=== PATIENT | female | born 1960 | race Caucasian/White ===

== ENCOUNTER 2019-04-09 15:10 | Outpatient (CLI) | payer BC, SELFPAY ==
[2019-04-09 16:17] LABS: Anion Gap 13.8 mmol/L (7-16); Blood Urea Nitrogen 5 mg/dL (7-18); Calcium 8.9 mg/dL (8.5-10.1); Carbon Dioxide 32 mmol/L (21-32); Chloride 98 mmol/L (98-108); Estimated Glomerular Filt Rate > 60; Glucose 146 mg/dL (70-99); Osmolality Calculated 288 mOsm/kg (285-295); Potassium 4.8 mmol/L (3.5-5.1); Sodium 139 mmol/L (136-145)
== END 2019-04-09 15:11 | disposition home or self-care (01) ==
LOC: CHSLAB 15:13
PROVIDERS: PCP Internal Medicine; Visit Provider Internal Medicine
DX: E87.1 Hypo-osmolality and hyponatremia (principal)
CPT/HCPCS: 36415; 80048

== ENCOUNTER 2019-04-15 08:57 | Emergency (ER) | payer BC, SELFPAY ==
[2019-04-15] VITALS (10 sets, daily range): BP systolic 106–213; BP diastolic 62–111; PULSE 98–124; RESP 16–28; TEMP 36.1–37.1; O2SAT 92–96
--- NOTE | ~2019-04-15 | XR_ITS ---
XR chest 1V portable 04/15/2019 09:48 Indication: Dyspnea. Lung cancer. Procedure: AP portable chest Comparison: Comparison to multiple prior studies sequentially, with oldest reviewed study dated 05/2017. Findings: Status post left upper lobectomy with chronic atelectasis/scarring. There is right lower lo be atelectasis/scarring. Blunting of the costophrenic recesses appears chronic. Portacatheter tip in the SVC. Lytic lesions of the scapula bilaterally with pathologic fracture at the left acromioclavicu lar joint, unchanged. Impression: 1: Chronic changes of left upper lobectomy with scarring/atelectasis. 2: Chronic right basilar atelectasis/scarring. 3: Lytic lesions of the scapula bilaterally with probable pathologic fracture of the left scapula. No significant change. Findings compatible with metastatic disease. Reviewed, dictated and finalized at location A. Impression: 1: Chronic changes of left upper lobectomy with scarring/atelectasis. 2: Chronic right basilar atelectasis/scarring. 3: Lytic lesions of the scapula bilaterally with probable pathologic fracture o f the left scapula. No significant change. Findings compatible with metastatic disease.
--- NOTE | 2019-04-15 09:23 | ECG_ITS ---
Measurements Intervals [place] Rate: 117 P: 91 DE: 151 QRS: 97 QRSD: 92 T: 71 QT: 294 QTc: 411 Interpretive Statements SINUS TACHYCARDIA RIGHT AXIS DEVIATION DELAYED PRECORDIAL R/S TRANSITION BORDERLINE T WAVE ABNORMALITY- INFERIOR LEADS BASELINE ARTIFACT- I, II, III, AVR, V1-V6 ABNORMAL ECG Electronically Signed On 04-15-2019 15:48:17 CDT by Tito Henderson D.O.
[2019-04-15 09:34] LABS: Base Excess ABG 12.6 mmol/L (0-2); HCO3 ABG 45.1 mmol/L (23-29); Oxygen Content ABG 15.5 %vol (16.0-22.0); Oxyhemoglobin 82.2 % (94-100); PO2 ABG 130.5 mmHg (80-90); Total Hemoglobin 13.2 g/dL; pH ABG 7.22 (7.35-7.45)
[2019-04-15 09:36] LABS: Device NASAL CANNULA; Modified Allen's Test Pass; Site Drawn RIGHT RADIAL
[2019-04-15 09:37] LABS: PCO2 ABG 112.4 mmHg (35-45)
[2019-04-15 09:40] LABS: Hematocrit 40.5 % (35.0-49.0); Hemoglobin 12.7 g/dL (12.0-15.0); Mean Corpuscular HGB Conc 31.4 g/dL (32.0-36.0); Mean Corpuscular Hemoglobin 33.5 pg (27.0-31.0); Mean Corpuscular Volume 106.9 fL (78.0-102.0); Mean Platelet Volume 9.8 fl (9.2-11.8); Platelet Count Result 203 K/mm3 (150-420); Red Blood Count 3.79 M/mm3 (4.20-5.40); Red Cell Distribution Width 13.8 % (11.6-14.4); White Blood Count 11.6 K/mm3 (4.8-10.8)
[2019-04-15 09:55] LABS: Alanine Aminotransferase 30 U/L (14-59); Albumin Level 3.6 g/dL (3.4-5.0); Alkaline Phosphatase 102 U/L (46-116); Aspartate Amino Transferase 21 U/L (15-37); Bilirubin,Total 0.2 mg/dL (0.00-1.00); Blood Urea Nitrogen 9 mg/dL (7-18); Calcium 9.8 mg/dL (8.5-10.1); Chloride 95 mmol/L (98-108); Estimated Glomerular Filt Rate > 60; Glucose 188 mg/dL (70-99); Osmolality Calculated 287 mOsm/kg (285-295); Potassium 4.8 mmol/L (3.5-5.1); Sodium 137 mmol/L (136-145); Total Protein 7.9 g/dL (6.4-8.2)
[2019-04-15 09:57] LABS: Lactic Acid 1.3 mmol/L (0.4-2.0); Troponin I < 0.02 ng/mL (0.00-0.056)
[2019-04-15 09:59] LABS: Magnesium 1.5 mg/dL (1.8-2.4)
[2019-04-15 10:02] LABS: Anion Gap 1.79999 mmol/L (7-16); BNP 133 pg/mL (0-100); Carbon Dioxide > 45 mmol/L (21-32)
[2019-04-15 10:17] LABS: D Dimer 0.61 mg/L (0.19-0.50)
[2019-04-15 10:18] LABS: Partial Thromboplastin Time 30.6 SEC (22.3-31.6); Prothrombin Time 10.5 Seconds (9.64-11.0)
[2019-04-15 10:55] LABS: Alveolar/Arterial O2 Gradient 103.3 mmHg; Base Excess ABG 16.2 mmol/L (0-2); Fractional Inspired Oxygen 40 %; HCO3 ABG 47.5 mmol/L (23-29); Oxygen Content ABG 13.2 %vol (16.0-22.0); Oxygen Saturation ABG 92.4 % (95-97); Oxyhemoglobin 78.8 % (94-100); PO2 ABG 59.9 mmHg (80-90); Total Hemoglobin 11.9 g/dL; pH ABG 7.27 (7.35-7.45)
[2019-04-15 10:56] LABS: Device BIPAP; Modified Allen's Test Pass; Site Drawn RIGHT RADIAL
--- NOTE | 2019-04-15 10:56 | PC.NURSE ---
1030 call to [facility] for transfer. attempting to find bed availability. jesus alberto, respiratory staff in with pt. pt breathing much better after bipap applied. report to madie washington
[2019-04-15 10:57] LABS: PCO2 ABG 106.1 mmHg (35-45)
[2019-04-15 11:12] LABS: Expiratory Pressure 6 cmH2O; Inspiratory Pressure 12 cmH2O
--- NOTE | 2019-04-15 11:13 | PC.NURSE ---
dr granados speaking with JILLIAN Pena at [facility], for Dr Iglesias. pt accepted . awaiting bed placement.
--- NOTE | 2019-04-15 11:14 | ED.SOB ---
HPI - SOB/Dyspnea General Chief Complaint: Shortness of Breath/Dyspnea Stated Complaint: ambulance Source: patient, family and EMS Limitations: clinical condition History of Present Illness HPI Narrative: 59-year-old female presents via EMS with shortness of breath and was found unresponsive and EMS administered oxygen and breathing treatment and patient did arouse more while she presented to the emergency department. Patient has a history of COPD with lung cancer metastatic with lytic lesions to the bone. After talking to family the patient is a full code, the patient was having audible wheezing with decreased breath sounds with no fever chills with no chest pain no abdominal pain no headaches no nausea vomiting. The patient has been on a pain pump for pancreatitis and EMS did find that she had pinpoint pupils admitted administered nor can. Patient has a history of metastatic lung cancer with COPD and history of DVT. MD elicited complaint: shortness of breath Pertinent past history: COPD Onset (ago): hour(s) Timing: constant Severity: severe Exacerbating factors: lying flat Relieving factors: oxygen, rest and bronchodilators Known history of: COPD Associated symptoms: denies other symptoms Treatment prior to arrival: oxygen and bronchodilator Related Data Home Medications Medication Instructions Recorded Confirmed alprazolam 0.5 mg PO BID PRN 12/17/18 04/15/19 amitriptyline 100 mg PO DAILY 12/17/18 04/15/19 blood sugar diagnostic [OneTouch 12/17/18 04/15/19 Ultra Blue Test Strip] ergocalciferol (vitamin D2) 1 unit PO DAILY 12/17/18 04/15/19 pttqggrfgku-atgtthhvw-zxdywlex 1 inh INHALATION BID 12/17/18 04/15/19 [Trelegy Ellipta] folic acid 1 mg DAILY 12/17/18 04/15/19 glimepiride 4 mg PO DAILY 12/17/18 04/15/19 ipratropium-albuterol [Combivent 2 puff INHALATION DAILY 12/17/18 04/15/19 Respimat] lancets [OneTouch Delica Lancets] 12/17/18 04/15/19 levothyroxine [Synthroid] 175 mcg PO DAILY 12/17/18 04/15/19 lidocaine HCl [Lidocaine Viscous] 1 applic MUCOUS MEMBRANE DAILY PRN 12/17/18 04/15/19 lisinopril-hydrochlorothiazide 1 tablet PO DAILY 12/17/18 04/15/19 morphine 2 mg PO DAILY 12/17/18 04/15/19 nystatin 1 unit MUCOUS MEMBRANE DAILY PRN 12/17/18 04/15/19 ondansetron HCl 8 mg PO DAILY 12/17/18 04/15/19 potassium chloride 20 meq PO DAILY 12/17/18 04/15/19 rivaroxaban [Xarelto] 2.5 mg PO DAILY 01/23/19 04/15/19 Allergies Allergy/AdvReac Type Severity Reaction Status Date / Time NSAIDS (Non-Steroidal Allergy Unknown Verified 12/12/18 17:19 Anti-Inflamma Sulfa (Sulfonamide Allergy Unknown Verified 12/12/18 17:19 Antibiotics) Review of Systems Review of Systems: All systems reviewed & are unremarkable except as noted in HPI and below PMFSH Past Medical History Medical History COPD (chronic obstructive pulmonary disease) Metastatic lung cancer (metastasis from lung to other site) Pancreatitis, chronic Family History Family History Other Diabetes mellitus Family history of arthritis Family history of lung cancer Hypertension Social History Social History Social History: smoker, now on occasion Smoking status: Never smoker Alcohol intake: never Gender identity (if verbalized by the patient): Female Exam Const: General: no acute distress and alert Orientation/consciousness: patient oriented x3 HENMT: Head: normal to inspection Eyes: Conjunctivae: conjunctivae normal Pupils: Equal, round and reactive pupils present Neck: Neck: normal visual inspection Chest: Chest palpation & inspection: normal inspection of the chest and abnormal inspection of the chest Resp: Effort & Inspection: labored and uses accessory muscles Auscultation: wheezes and diminished lung sounds Cardio: Rate: regular rate Rhythm: reg
--- NOTE | 2019-04-15 11:28 | PC.NURSE ---
report to madie washington
[2019-04-15] MEDS: methylPREDNISolone SOD SUCC 125 MG VIAL IV PUSH (11:40)
== END 2019-04-15 13:40 | disposition short-term general hospital (02) ==
PROVIDERS: Emergency Provider Emergency Medicine; PCP Internal Medicine
DX: J44.1 Chronic obstructive pulmonary disease with (acute) exacerbation (principal); R09.02 Hypoxemia; C34.90 Malignant neoplasm of unspecified part of unspecified bronchus or lung
CPT/HCPCS: 36415; 36600; 71045; 80053; 82805; 82948; 83605; 83735; 83880; 84484; 85027; 85380; 85610; 85730; 87040; 93005; 94640; 96374; 99285; J2930

== ENCOUNTER 2019-05-12 04:39 | Observation (INO) | payer BC, SELFPAY ==
[2019-05-12] VITALS (13 sets, daily range): BP systolic 124–156; BP diastolic 78–88; PULSE 91–99; RESP 16–20; TEMP 36.3–36.8; O2SAT 96–100; BMI 19.5
--- NOTE | ~2019-05-12 | XR_ITS ---
XR chest 2V DATE: 05/13/2019 10:21 INDICATION: Wheezing, dyspnea, shortness of breath TECHNIQUE: 2 views COMPARISON: 05/11/2021 view chest FINDINGS: Right Port-A-Cath catheter tip near superior cavoatrial junction. Normal heart size. Status post left partial pneumonectomy. There is discoid atelectasis or more likely discoid scarring at the right lung base. The lungs are hy perinflated consistent with COPD. No pulmonary consolidation is evident. No pleural effusion or pulmo nary vascular congestion or pneumothorax. Bilateral healed ninth rib fractures. Lytic lesion of left scapular acromial spine. IMPRESSION: Discoid atelectasis or scarring at right lung base COPD Status post left partial pneumonectomy Right Port-A-Cath Reviewed, dictated and finalized at location A.
--- NOTE | ~2019-05-12 | XR_ITS ---
XR chest 2V DATE: 05/12/2019 06:05 INDICATION: Dyspnea. History of lung cancer. TECHNIQUE: 2 views COMPARISON: 04/25/2019 portable AP chest 11/25/2018 CT pulmonary scan FINDINGS: Right Port-A-Cath catheter tip overlies the lower superior vena cava near superior cavoatri al junction. Heart size is normal. There is partial left pneumonectomy. The lungs are hyperinflated c onsistent with COPD. Mild infiltrate or atelectasis is suggested at the right lung base. Lytic lesion of left scapular acromion spine is again noted. Healed fracture of bilateral ninth ribs. Thoracolumbar scoliosis. A catheter overlies the lumbar spine. IMPRESSION: Mild infiltrate or atelectasis at right lung base COPD Status post left partial pneumonectomy for history of lung cancer Port-A-Cath catheter tip near superior cavoatrial junction Reviewed, dictated and finalized at location A.
--- NOTE | 2019-05-12 04:56 | ED.SOB ---
HPI - SOB/Dyspnea General Chief Complaint: Shortness of Breath/Dyspnea Stated Complaint: SOB Time Seen by Provider: 05/12/19 04:57 Source: patient Mode of arrival: ambulatory Limitations: no limitations History of Present Illness HPI Narrative: 59 year-old woman brought by EMS for more shortness of breath than usual which started in the last 2 hours. Patient states that having increased oxygen by nasal cannula in the ambulance seems to make her shortness of breath better. She denies chest pain, change in her cough, sputum production, cold symptoms, fever, abdominal pain, or sick exposures or travel. Her last chemotherapy was approximately 5 weeks ago. MD elicited complaint: shortness of breath Pertinent past history: COPD and other (Lung cancer s/p lobectomy) Onset (ago): hour(s) (2) Severity: moderate Exacerbating factors: nothing Relieving factors: oxygen Treatment prior to arrival: oxygen and bronchodilator (MDI) Related Data Home oxygen amount: 2 liters Home Medications Medication Instructions Recorded Confirmed alprazolam 0.5 mg PO BID PRN 12/17/18 05/12/19 blood sugar diagnostic [OneTouch 12/17/18 05/12/19 Ultra Blue Test Strip] ergocalciferol (vitamin D2) 1 unit PO DAILY 12/17/18 05/12/19 cznbzhcypvi-kwqittevf-cxmcoaut 1 inh INHALATION BID 12/17/18 05/12/19 [Trelegy Ellipta] folic acid 1 mg DAILY 12/17/18 05/12/19 glimepiride 4 mg PO DAILY 12/17/18 05/12/19 ipratropium-albuterol [Combivent 2 puff INHALATION DAILY 12/17/18 05/12/19 Respimat] lancets [OneTouch Delica Lancets] 12/17/18 05/12/19 levothyroxine [Synthroid] 175 mcg PO DAILY 12/17/18 05/12/19 lidocaine HCl [Lidocaine Viscous] 1 applic MUCOUS MEMBRANE DAILY PRN 12/17/18 05/12/19 morphine 2 mg PO DAILY 12/17/18 05/12/19 nystatin 1 unit MUCOUS MEMBRANE DAILY PRN 12/17/18 05/12/19 ondansetron HCl 8 mg PO DAILY 12/17/18 05/12/19 potassium chloride 20 meq PO DAILY 12/17/18 05/12/19 rivaroxaban [Xarelto] 2.5 mg PO DAILY 01/23/19 05/12/19 hydromorphone 8 mg PO PRN PRN 05/12/19 05/12/19 prochlorperazine maleate 10 mg PO DAILY 05/12/19 05/12/19 Allergies Allergy/AdvReac Type Severity Reaction Status Date / Time NSAIDS (Non-Steroidal Allergy Unknown Verified 12/12/18 17:19 Anti-Inflamma Sulfa (Sulfonamide Allergy Unknown Verified 12/12/18 17:19 Antibiotics) Review of Systems Constitutional: Constitutional: Denies chills, Denies fatigue, Denies fever(s) and Denies weakness Eyes: Eyes: Denies change in vision and Denies photophobia ENT: Denies dysphagia, Denies nasal congestion and Denies sore throat Cardiovascular: Cardiovascular: Denies chest pain, Denies rapid heart rate and Denies radiating jaw, neck or arm pain Respiratory: Respiratory: Reports cough (chronic), Reports dyspnea and Denies wheezing Gastrointestinal: Gastrointestinal: Denies abdominal pain, Denies diarrhea, Denies nausea and Denies vomiting Genitourinary: Genitourinary: Denies nocturia and Denies dysuria Musculoskeletal: Musculoskeletal: Denies arthralgias and Denies joint swelling Integumentary/Breasts: Skin/Breast: Denies pruritus, Denies erythema and Denies rash Neurologic: Denies vertigo, Denies dizziness and Denies syncope Psychiatric: Psychiatric: Denies anxiety and Denies depression Endocrine: Endocrine: Denies polydipsia and Denies polyuria Hematologic/Lymphatic: Hematologic/Lymphatic: Denies easy bleeding and Denies easy bruising Allergic/Immunologic: Allergic/Immunologic: Denies lip swelling and Denies wheezing [facility] Past Medical History Medical History (Updated 05/12/19 @ 06:54 by Rickey Subramanian MD) COPD (chronic obstructive pulmonary disease) Hypothyroidism Metastatic lung cancer (metastasis from lung to other site) Pancreatitis, chronic Type 2 diabetes mellitus Surgical History Surgical History (Updated 05/12/19 @ 05:13 by Rickey Subramanian MD) Hx of gastric bypass Status post lobectomy of lung Social History Social History
--- NOTE | 2019-05-12 04:58 | ECG_ITS ---
Measurements Intervals [place] Rate: 97 P: 97 [place]: 171 QRS: 97 QRSD: 90 T: 82 QT: 362 QTc: 460 Interpretive Statements SINUS RHYTHM ARM LEADS REVERSED BASELINE ARTIFACT- I, II, AVR, AVL, AVF, V1-V3 ATYPICAL ECG Electronically Signed On 05-12-2019 20:10:35 CDT by Tito Henderson D.O.
[2019-05-12 05:24] LABS: Basophils Absolute Auto 0.01 K/mm3 (0.00-0.10); Basophils Percent Auto 0.1 % (0.0-1.0); Eosinophils Absolute Auto 0.17 K/mm3 (0.02-0.50); Eosinophils Percent Auto 1.7 % (1.0-6.0); Hematocrit 40.7 % (35.0-49.0); Immature Granulocyte Absolute 0.04 K/mm3 (0.00-0.00); Immature Granulocyte Percent A 0.4 % (0.0-0.0); Lymphocytes Absolute Auto 0.94 K/mm3 (1.10-4.50); Lymphocytes Percent Auto 9.4 % (18.0-42.0); Mean Corpuscular HGB Conc 31.9 g/dL (32.0-36.0); Mean Corpuscular Hemoglobin 32.9 pg (27.0-31.0); Mean Platelet Volume 10.1 fl (9.2-11.8); Neutrophils Absolute Auto 7.6 K/mm3 (1.7-7.2); Neutrophils Percent Auto 76.4 % (50.0-70.0); Platelet Count Result 198 K/mm3 (150-420); Red Blood Count 3.95 M/mm3 (4.20-5.40); Red Cell Distribution Width 14.9 % (11.6-14.4)
[2019-05-12 05:39] LABS: Partial Thromboplastin Time 29.2 SEC (22.3-31.6); Prothrombin Time 10.4 Seconds (9.64-11.0)
[2019-05-12 05:42] LABS: BNP 23.1 pg/mL (0-100)
[2019-05-12 05:45] LABS: Alanine Aminotransferase 17 U/L (14-59); Alkaline Phosphatase 95 U/L (46-116); Aspartate Amino Transferase 15 U/L (15-37); Bilirubin,Total 0.2 mg/dL (0.00-1.00); Blood Urea Nitrogen 6 mg/dL (7-18); Calcium 9.2 mg/dL (8.5-10.1); Carbon Dioxide 36 mmol/L (21-32); Chloride 99 mmol/L (98-108); Estimated CRCL calculation 61 ml/min; Estimated Glomerular Filt Rate > 60; Glucose 94 mg/dL (70-99); Osmolality Calculated 289 mOsm/kg (285-295); Sodium 141 mmol/L (136-145); Total Protein 6.5 g/dL (6.4-8.2); Troponin I < 0.02 ng/mL (0.00-0.056)
[2019-05-12 05:45] LABS: Lactic Acid 0.6 mmol/L (0.4-2.0)
[2019-05-12 05:46] LABS: CRP 1.1 mg/dL (0.0-0.9)
[2019-05-12] MEDS: SODIUM CHLORIDE 0.9% IV 500 ML 999 ML IV CONT (06:29)
--- NOTE | 2019-05-12 06:42 | PC.NURSE ---
Pt. to be admitted for 23 hr. obs. ERP discussed POC c pt. for tele obs. admit.
[2019-05-12] MEDS: ALPRAZOLAM 0.5 MG TABLET PO ×2 (06:59→12:28)
[2019-05-12] MEDS: methylPREDNISolone SOD SUCC 40 MG VIAL 80 MG IV PUSH (07:02)
--- NOTE | 2019-05-12 08:00 | PC.NURSE ---
Patient transported to floor via stretcher. Ambulated from stretcher to bed. A&Ox3. Denies pain, nausea, dizziness. No SOB noted or stated.
[2019-05-12 08:08] LABS: Glucose Point of Care 121 (65-105)
--- NOTE | 2019-05-12 09:18 | PM.IMHP ---
H&P: HPI History of Present Illness Chief complaint: SOB Narrative: Bhavani Leyva is a 59 year old female admitted with COPD exacerbation with possible UTI and possible LLL pneumonia. She stated that she was sleeping and was awakened in the computer aide around 3-4 am with significant and new shortness of breath and dyspnea. She was brought in by EMS since her shortness of breath lasted longer than usual, approx. 2 hours. Patient stated that having increased oxygen by nasal cannula in the ambulance seems to make her shortness of breath better. She denied chest pain, change in her cough, sputum production, cold symptoms, fever, abdominal pain, or sick exposures or travel. Her last chemotherapy was approximately 5 weeks ago. In the ED she was given 3-4 L oxygen, bronchodilator (MDI), 500ml IV fluid bolus, 80mg Solumedrol, and started on IV Azithro and Rocephin. She uses 2 L O2 NC at home. She has a history of lung cancer, JARED resection, and completed IV Chemo at [facility]. She completed IV Chemo and will be following up with her [facility] physician for any further cancer treatments. Bhavani has Dr. Valencia as her Primary Care physician. She is currently resting in bed, comfortable, lying on her left side, able to sit up for my exam. Lung sounds are diminished throughout, but no wheezes or crackles noted. As it is Tuesday, unable to complete a VQ scan today. She is currently on 3 L O2 NC. CXR was completed today with comparison to past studies; results showed: Heart size is normal. There is partial left pneumonectomy. The lungs are hyperinflated consistent with COPD. Mild infiltrate or atelectasis is suggested at the right lung base. Lytic lesion of left scapular acromion spine is again noted. Healed fracture of bilateral ninth ribs. Thoracolumbar scoliosis. A catheter overlies the lumbar spine. Mild infiltrate or atelectasis at right lung base. COPD. Status post left partial pneumonectomy for history of lung cancer. Port-A-Cath catheter tip near superior cavoatrial junction. Review of Systems Review of Systems: All systems reviewed & are unremarkable except as noted in HPI and below Constitutional: Constitutional: Reports as per HPI, Denies body ache(s), Denies chills, Denies difficulty sleeping, Reports fatigue, Reports lethargy, Denies night sweats and Reports weakness Eyes: Eyes: Reports as per HPI, Denies blurry vision and Denies photophobia ENT: Reports as per HPI, Reports Normal hearing present, Denies dysphagia, Denies epistaxis, Denies nasal congestion, Denies nasal discharge and Denies tinnitus Cardiovascular: Cardiovascular: Reports as per HPI, Denies chest pain, Denies diaphoresis, Denies pedal edema, Denies leg edema, Denies lightheadedness and Denies palpitations Respiratory: Respiratory: Reports as per HPI, Denies chest congestion, Denies cough, Denies hemoptysis, Reports dyspnea, Reports dyspnea on exertion and Denies wheezing Gastrointestinal: Gastrointestinal: Reports as per HPI, Denies abdominal pain, Denies melena, Denies bloating, Denies hematochezia, Denies constipation, Reports heartburn, Denies diarrhea, Reports nausea, Reports vomiting and Denies hematemesis Genitourinary: Genitourinary: Reports as per HPI, Denies hematuria, Denies urinary frequency, Denies nocturia, Denies menorrhagia, Denies dysmenorrhea, Denies pelvic pain, Denies flank pain, Denies urinary hesitancy, Denies urinary urgency and Denies vaginal discharge Musculoskeletal: Musculoskeletal: Reports as per HPI, Denies back pain, Reports myalgias, Denies arthralgias, Denies joint swelling, Denies neck pain and Reports stiffness Integumentary/Breasts: Skin/Breast: Reports as per HPI, Denies breast pain, Denies breast mass, Denies dry skin, Denies pruritus, Denies erythema, Denies rash, Denies skin pain, Denies unusual bruising and Denies wounds Neurologic: Reports as per HPI, Denies Abnormal speech present, Denies confusion, Denies headache(s) and Denies numbness Psychiatric: Psy
[2019-05-12 09:25] LABS: Add Urine Microscopic? YES; Appearance Urine Clear (Clear); Bilirubin Urine Negative (Negative); Blood Urine Negative (Negative); Color Urine Yellow (Yellow); Glucose Urine UA Negative (Negative); Ketones Urine Trace (Negative); Leukocyte Esterase Ur Negative LEU/UL (Negative); Nitrate Urine Negative (Negative); Protein Urine Negative (Negative); Specific Grav Ur 1.015 (1.010-1.020); Urobilinogen Urine 0.2 mg/dL (0.2-1.0)
[2019-05-12 09:30] LABS: RBC Urine 0-2 /hpf (0-2); Squamous Epithelial Cell Urine Few /hpf (Few); WBC Urine 0-3 /hpf (0-3)
[2019-05-12] MEDS: FOLIC ACID 1 MG TABLET BY MOUTH (09:30)
[2019-05-12 09:31] LABS: Bacteria Urine Trace /hpf
[2019-05-12] MEDS: GLIMEPIRIDE 2 MG TABLET 4 MG PO (09:31)
[2019-05-12] MEDS: ONDANSETRON INJ 4 MG/2 ML VIAL IV PUSH (09:53)
[2019-05-12 10:14] LABS: Magnesium 1.3 mg/dL (1.8-2.4); Phosphorus 3.7 mg/dL (2.6-4.7)
[2019-05-12] MEDS: RIVAROXABAN 2.5 MG TABLET PO (10:52)
[2019-05-12 11:04] LABS: Thyroid Stimulating Hormone Reflex 0.82 u/IU/mL (0.36-3.74)
[2019-05-12] MEDS: MAGNESIUM SULF 4 GM/WATER100ML 4 GM/100 ML BAG IVPB (11:26)
[2019-05-12] MEDS: RIVAROXABAN 10 MG TABLET 20 MG PO (11:33)
[2019-05-12 11:45] LABS: Glucose Point of Care 235 (65-105)
[2019-05-12 12:23] LABS: Troponin I < 0.02 ng/mL (0.00-0.056)
[2019-05-12] MEDS: MORPHINE SULFATE 2 MG/ML INJ IV PUSH ×3 (12:28→20:58)
[2019-05-12] MEDS: CENTRAL LINE FLUSH 10 ML IV PUSH ×2 (15:52→20:57)
[2019-05-12 17:00] LABS: Glucose Point of Care 216 (65-105)
[2019-05-12 18:12] LABS: Troponin I < 0.02 ng/mL (0.00-0.056)
[2019-05-12] MEDS: NYSTATIN 100,000 UNITS/ML SUSP 5 ML ORAL.SUSP BY MOUTH (18:40)
--- NOTE | 2019-05-12 19:15 | PC.NURSE ---
Patient resting in bed. Breathing appears unlabored. Patient is on oxygen at 3 liters by nasal cannula. Patient is in sinus rhythm in the 90s on telemetry. Call light is within reach.
[2019-05-12] MEDS: methylPREDNISolone SOD SUCC 40 MG VIAL IV PUSH (20:56)
--- NOTE | 2019-05-12 21:00 | PC.NURSE ---
Patient given PRN IVP morphine for pain. Patient reporting whole body muscle aching after receiving morphine and she states that the previous dose also caused similar pain. Patient states that she taked PO pain medication at home and it works well for her. Charge nurse notified.
[2019-05-12 21:19] LABS: Glucose Point of Care 268 (65-105)
[2019-05-13] VITALS: BP 160/86; PULSE 93; PULSE 98; RESP 22; TEMP 36.4; O2SAT 94
[2019-05-13] MEDS: HYDROMORPHONE HCL 2 MG TABLET 8 MG PO ×2 (00:38→09:21)
[2019-05-13] MEDS: ALPRAZOLAM 0.5 MG TABLET PO ×2 (00:38→08:33)
[2019-05-13 04:00] VITALS: BP 137/73; PULSE 97; PULSE 99; RESP 20; TEMP 36.2; O2SAT 96
[2019-05-13] MEDS: ONDANSETRON HCL ODT 4 MG TABLET 8 MG PO (04:13)
[2019-05-13 05:09] LABS: Basophils Absolute Auto 0.02 K/mm3 (0.00-0.10); Basophils Percent Auto 0.2 % (0.0-1.0); Hematocrit 40.3 % (35.0-49.0); Hemoglobin 13.1 g/dL (12.0-15.0); Immature Granulocyte Absolute 0.03 K/mm3 (0.00-0.00); Immature Granulocyte Percent A 0.3 % (0.0-0.0); Lymphocytes Absolute Auto 0.56 K/mm3 (1.10-4.50); Lymphocytes Percent Auto 6.5 % (18.0-42.0); Mean Corpuscular HGB Conc 32.5 g/dL (32.0-36.0); Mean Corpuscular Volume 101.5 fL (78.0-102.0); Mean Platelet Volume 10.1 fl (9.2-11.8); Monocytes Absolute Auto 0.39 K/mm3 (0.10-0.90); Monocytes Percent Auto 4.5 % (2.0-11.0); Neutrophils Absolute Auto 7.6 K/mm3 (1.7-7.2); Neutrophils Percent Auto 88.5 % (50.0-70.0); Platelet Count Result 202 K/mm3 (150-420); Red Blood Count 3.97 M/mm3 (4.20-5.40); Red Cell Distribution Width 14.7 % (11.6-14.4); White Blood Count 8.6 K/mm3 (4.8-10.8)
[2019-05-13 05:28] LABS: Alanine Aminotransferase 14 U/L (14-59); Albumin Level 2.6 g/dL (3.4-5.0); Alkaline Phosphatase 88 U/L (46-116); Anion Gap 7.2 mmol/L (7-16); Aspartate Amino Transferase 14 U/L (15-37); Bilirubin,Total 0.2 mg/dL (0.00-1.00); Blood Urea Nitrogen 8 mg/dL (7-18); Calcium 8.3 mg/dL (8.5-10.1); Carbon Dioxide 35 mmol/L (21-32); Chloride 100 mmol/L (98-108); Estimated CRCL calculation 58 ml/min; Estimated Glomerular Filt Rate > 60; Glucose 219 mg/dL (70-99); Osmolality Calculated 291 mOsm/kg (285-295); Potassium 4.2 mmol/L (3.5-5.1); Sodium 138 mmol/L (136-145); Total Protein 5.9 g/dL (6.4-8.2)
[2019-05-13 05:30] LABS: Lactic Acid 1.1 mmol/L (0.4-2.0); Troponin I < 0.02 ng/mL (0.00-0.056)
[2019-05-13] MEDS: LEVOTHYROXINE SODIUM 75 MCG TABLET PO (05:55)
[2019-05-13] MEDS: LEVOTHYROXINE SODIUM 100 MCG TABLET PO (05:55)
[2019-05-13] MEDS: CENTRAL LINE FLUSH 10 ML IV PUSH (05:55)
[2019-05-13 07:40] LABS: Glucose Point of Care 214 (65-105)
[2019-05-13] MEDS: MORPHINE SULFATE 2 MG/ML INJ IV PUSH (07:45)
[2019-05-13 07:56] VITALS: BP 148/81; PULSE 97; RESP 18; TEMP 36.7; O2SAT 100
[2019-05-13 07:57] VITALS: PULSE 96
[2019-05-13 08:32] LABS: Magnesium 1.8 mg/dL (1.8-2.4)
[2019-05-13] MEDS: FOLIC ACID 1 MG TABLET BY MOUTH (09:23)
[2019-05-13] MEDS: MAGNESIUM OXIDE 400 MG TABLET PO (09:23)
[2019-05-13] MEDS: GLIMEPIRIDE 2 MG TABLET 4 MG PO (09:23)
[2019-05-13] MEDS: RIVAROXABAN 10 MG TABLET 20 MG PO (09:23)
[2019-05-13] MEDS: methylPREDNISolone SOD SUCC 40 MG VIAL IV PUSH (09:25)
[2019-05-13] MEDS: ONDANSETRON INJ 4 MG/2 ML VIAL IV PUSH (09:34)
[2019-05-13] MEDS: NYSTATIN 100,000 UNITS/ML SUSP 5 ML ORAL.SUSP BY MOUTH (09:34)
--- NOTE | 2019-05-13 10:02 | PC.NURSE ---
Patient ambulated from bed to restroom to wheelchair for transfer to [facility]. Call light in reach.
--- NOTE | 2019-05-13 10:06 | PC.NURSE ---
Patient transported off of floor, via wheelchair to xray
[2019-05-13 11:19] LABS: Glucose Point of Care 218 (65-105)
[2019-05-13 11:20] VITALS: BP 141/92; PULSE 99; RESP 18; TEMP 37.2; O2SAT 94
[2019-05-13 11:21] VITALS: PULSE 99
--- NOTE | 2019-05-13 12:21 | PM.DS ---
DS: Diagnosis Admitting Diagnosis Admitting Diagnosis: Chronic obstructive pulmonary disease with (acute) exacerbation <Elvie Degroot NP - Last Filed: 05/13/19 12:58> Discharge Diagnosis (1) Acute exacerbation of chronic obstructive pulmonary disease: Code(s): J44.1 - Chronic obstructive pulmonary disease with (acute) exacerbation <Elvie Degroot NP - Last Filed: 05/13/19 12:58> Status: Acute <Elvie Degroot NP - Last Filed: 05/13/19 12:58> Assessment and Plan: 24 hours observation completed, patient stable and improved, no dyspnea noted. SpO2 100% on 3 L O2 NC and SpO2 94% on 2 L O2 NC today continued to encourage oral hydration Continuous Telemetry monitoring with no ectopy noted and NSR HR 70-80s Mag low, replenished with IV, level today WNL, discharge on oral mag, to F/U with PCP Phos level is WNL CBC and CMP labs today stable. tolerated IV Solumedrol, continued oral prednisone at discharge Continue home inhalers Trelegy and Combivent - bronchodilators (MDI), CXR on 05/11 and again today 05/12 with extensive fibrosis/scarring from previous surgeries/COPD but no evidence of pneumonia Follow up with PCP Dr. Valencia and [facility] after discharge <Elvie Degroot NP - Last Filed: 05/13/19 12:58> (2) Metastatic lung cancer (metastasis from lung to other site): Qualifiers: Laterality: unspecified laterality Qualified Code(s): C34.90 - Malignant neoplasm of unspecified part of unspecified bronchus or lung <Elvie Degroot NP - Last Filed: 05/13/19 12:58> Code(s): C34.90 - Malignant neoplasm of unspecified part of unspecified bronchus or lung <Elvie Degroot NP - Last Filed: 05/13/19 12:58> Status: Acute <Elvie Degroot NP - Last Filed: 05/13/19 12:58> Assessment and Plan: nursing staff safely accessed port a cath site and using for IV access/administration - no issues noted, no concerns, no discomfort. port a cath orders placed for appropriate care of site. metastatic pain is controlled with current regime patient stated that zofran usually treats her N/V best - orders in place for IV or oral form She will follow up with [facility] physicians after discharge for if any further chemo or radiation is needed. able to D/C the IV Azithro and Rocephin when her exam and her CXR persistently showed no pneumonia or s/s of infection Ruled out Pneumonia and Ruled out UTI UA showed no nitrates/WBC/trace bacteria. <Elvie Degroot NP - Last Filed: 05/13/19 12:58> (3) Hypomagnesemia: Code(s): E83.42 - Hypomagnesemia <Elvie Degroot NP - Last Filed: 05/13/19 12:58> Status: Acute <Elvie Degroot NP - Last Filed: 05/13/19 12:58> Assessment and Plan: IMPROVED. RESOLVED. Low Mag level s/s: apathy and weakness, known chronic vitamin D deficiency(already on home dose) Mag. level 1.3 yesterday, improved to 1. 8 today. ordered 4 gm Mag IV pending PTH level TSH level is WNL, on levothyroxine. started her on daily mag oral but that may be difficult for her to keep up at home due to her level of chronic and persistent nausea at home will need to F/U with PCP to monitor mag level 24 hours observation with no concerns, improved, stable Continuous Telemetry monitoring with no ectopy or concerns Follow up with PCP Dr. Valencia after discharge <Elvie Degroot NP - Last Filed: 05/13/19 12:58> DS: Summary Time Spent with Patient Time attestation: Total time spent providing and/or coordinating discharge services:>60 minutes <Elvie Degroot NP - Last Filed: 05/13/19 12:58> Exam Narrative: Exam Narrative: I, Frandy Celeste MD, have seen and examined this patient with Elvie Degroot APN. I agree with the discharge summary as written. On exam lungs have short air exchange, otherwise no wheezes rales or rhonchi. Heart regular rate and rhythm with a soft 3/6 systolic ejection murmur at the left lower sternal border. Extremities no c
--- NOTE | 2019-05-13 12:25 | PC.NURSE ---
Discharge instructions given, instructed. Patient verbalizes understanding.
[2019-05-15 07:57] LABS: Parathyroid Intact 33 pg/mL (14-64)
--- NOTE | 2019-06-05 15:07 | PC.NURSE ---
DISCHARGE FOLLOW UP CALL: No answer, message left
== END 2019-05-13 12:45 | disposition home or self-care (01) ==
LOC: CHSED 06:54 → CHS2ND 07:18
PROVIDERS: Nurse Practitioner; Admitting Provider Emergency Medicine; Emergency Provider Emergency Medicine; Visit Provider Emergency Medicine
DX: J44.1 Chronic obstructive pulmonary disease with (acute) exacerbation (principal); C34.12 Malignant neoplasm of upper lobe, left bronchus or lung; E83.42 Hypomagnesemia; E03.9 Hypothyroidism, unspecified; E11.9 Type 2 diabetes mellitus without complications; K86.1 Other chronic pancreatitis; Z86.711 Personal history of pulmonary embolism; Z79.01 Long term (current) use of anticoagulants; Z99.81 Dependence on supplemental oxygen; Z79.899 Other long term (current) drug therapy
CPT/HCPCS: 36415; 71046; 80053; 81001; 83605; 83735; 83880; 83970; 84100; 84443; 84484; 85025; 85380; 85610; 85730; 86140; 87040; 87077; 87086; 87088; 87186; 93005; 96361; 96365; 96366; 96367; 96375; 96376; 99285; A9270; G0378; J0456; J0696; J2270; J2405; J2920; J3475; J7040

== ENCOUNTER 2019-05-30 14:10 | Emergency (ER) | payer BC, SELFPAY ==
[2019-05-30] VITALS (9 sets, daily range): BP systolic 90–193; BP diastolic 54–113; PULSE 92–118; RESP 10–32; TEMP 37.1; O2SAT 91–100
--- NOTE | ~2019-05-30 | XR_ITS ---
XR chest 1V portable DATE: 05/30/2019 14:45 INDICATION: Dyspnea. Hypoxia. History of lung cancer. TECHNIQUE: Portable upright AP chest on 05/30/2019 at 1446 hours COMPARISON: 05/13/2019 2 view chest FINDINGS: New patchy consolidating infiltrates are noted particularly in the right mid and upper lung zones and to a lesser extent the right lower lung. Status post left partial pneumonectomy. Bilateral hyperinflation consistent with COPD. Heart size appears within normal range. Diffuse osteopenia. Right Port-A-Cath catheter tip overlies the superior cavoatrial junction. IMPRESSION: Extensive patchy consolidating infiltrates of the right lung, new since 05/13/2019. Reviewed, dictated and finalized at location A. IMPRESSION: Extensive patchy consolidating infiltrates of the right lung, new s bobby 05/13/2019.
--- NOTE | 2019-05-30 14:13 | ECG_ITS ---
Measurements Intervals [place] Rate: 120 P: 84 [place]: 194 QRS: 102 QRSD: 110 T: 69 QT: 319 QTc: 452 Interpretive Statements SINUS TACHYCARDIA LIMB LEAD REVERSAL DELAYED PRECORDIAL R/S TRANSITION BASELINE ARTIFACT- I, II, III, AVR, AVL, AVF, V1-V6 ABNORMAL ECG Electronically Signed On 05-30-2019 16:22:17 CDT by Tito Henderson D.O.
[2019-05-30] MEDS: methylPREDNISolone SOD SUCC 40 MG VIAL 80 MG IV PUSH (14:29)
[2019-05-30] MEDS: NALOXONE HCL 0.4 MG/ML VIAL IV PUSH (14:29)
[2019-05-30] MEDS: SODIUM CHLORIDE 0.9% IV 1,000 ML 999 ML IV CONT (14:29)
[2019-05-30 14:46] LABS: Basophils Absolute Auto 0.03 K/mm3 (0.00-0.10); Basophils Percent Auto 0.2 % (0.0-1.0); Eosinophils Absolute Auto 0.04 K/mm3 (0.02-0.50); Eosinophils Percent Auto 0.2 % (1.0-6.0); Hematocrit 41.5 % (35.0-49.0); Hemoglobin 13.2 g/dL (12.0-15.0); Immature Granulocyte Absolute 0.11 K/mm3 (0.00-0.00); Immature Granulocyte Percent A 0.6 % (0.0-0.0); Lymphocytes Percent Auto 4.6 % (18.0-42.0); Mean Corpuscular HGB Conc 31.8 g/dL (32.0-36.0); Mean Corpuscular Hemoglobin 32.9 pg (27.0-31.0); Mean Corpuscular Volume 103.5 fL (78.0-102.0); Mean Platelet Volume 10.5 fl (9.2-11.8); Monocytes Absolute Auto 1.25 K/mm3 (0.10-0.90); Monocytes Percent Auto 6.3 % (2.0-11.0); Neutrophils Absolute Auto 17.5 K/mm3 (1.7-7.2); Neutrophils Percent Auto 88.1 % (50.0-70.0); Platelet Count Result 175 K/mm3 (150-420); Red Blood Count 4.01 M/mm3 (4.20-5.40); Red Cell Distribution Width 14.9 % (11.6-14.4); White Blood Count 19.8 K/mm3 (4.8-10.8)
[2019-05-30] MEDS: LORAZEPAM INJ 2 MG/ML VIAL 0.5 MG IV PUSH (14:52)
--- NOTE | 2019-05-30 14:55 | PC.NURSE ---
Patient now AOx3 since being placed on BiPap and given Narcan. She is otherwise very anxious and was given Ativan 0.5mg IVP x 1 per MD order, pt has a Hx of anxiety. She now denies CP or arm pain. Reports SOB. ST on the monitor. Paperwork from PMD office included discharge summary from [facility] dated 04/23/19
[2019-05-30 14:58] LABS: D Dimer 0.43 mg/L (0.19-0.50); Partial Thromboplastin Time 26.5 SEC (22.3-31.6)
[2019-05-30 15:01] LABS: Alanine Aminotransferase 35 U/L (14-59); Alkaline Phosphatase 89 U/L (46-116); Anion Gap 5.7 mmol/L (7-16); Aspartate Amino Transferase 26 U/L (15-37); Bilirubin,Total 0.2 mg/dL (0.00-1.00); Blood Urea Nitrogen 17 mg/dL (7-18); Calcium 10.3 mg/dL (8.5-10.1); Carbon Dioxide 42 mmol/L (21-32); Chloride 90 mmol/L (98-108); Estimated Glomerular Filt Rate 53; Glucose 231 mg/dL (70-99); Osmolality Calculated 284 mOsm/kg (285-295); Potassium 4.7 mmol/L (3.5-5.1); Sodium 133 mmol/L (136-145); Total Protein 6.5 g/dL (6.4-8.2); Troponin I 0.02 ng/mL (0.00-0.056)
[2019-05-30 15:04] LABS: Base Excess ABG 8.8 mmol/L (0-2); HCO3 ABG 38.2 mmol/L (23-29); Oxygen Saturation ABG 97.4 % (95-97); Oxyhemoglobin 82.4 % (94-100); Total Hemoglobin 13.7 g/dL; pH ABG 7.31 (7.35-7.45)
[2019-05-30 15:07] LABS: Device BIPAP; Modified Allen's Test Unable to perform; PCO2 ABG 77.7 mmHg (35-45); Site Drawn RIGHT RADIAL
[2019-05-30 15:11] LABS: Expiratory Pressure 4 cmH2O; Inspiratory Pressure 8 cmH2O
[2019-05-30 15:12] LABS: Influenza Control Valid (Valid)
[2019-05-30] MEDS: IPRATROPIUM 0.5 MG/ALBUTEROL SULFATE 2.5 MG AMPUL.NEB 3 ML (15:17)
--- NOTE | 2019-05-30 15:25 | PC.NURSE ---
Patient now calm and with improved respirations after the Ativan. She remains on BiPap 8/4 50%. Ceftriaxone and Azithromycin IVPB to be started. COVID testing and influenza sent to lab
[2019-05-30 15:44] LABS: Add Urine Microscopic? YES; Appearance Urine Clear (Clear); Bilirubin Urine Negative (Negative); Blood Urine 2+ (Negative); Color Urine Yellow (Yellow); Glucose Urine UA Trace (Negative); Ketones Urine Negative (Negative); Leukocyte Esterase Ur Negative LEU/UL (Negative); Nitrate Urine Negative (Negative); Protein Urine Trace (Negative); Specific Grav Ur >= 1.030 (1.010-1.020); Urobilinogen Urine 0.2 mg/dL (0.2-1.0); pH Urine 5.5 (5.0-8.0)
[2019-05-30 15:51] LABS: Bacteria Urine Trace /hpf; Squamous Epithelial Cell Urine Rare /hpf (Few); WBC Urine 0-3 /hpf (0-3)
--- NOTE | 2019-05-30 15:55 | PC.NURSE ---
Patient daughter Roxie Leyva can be reached at [phone], she would like to be informed of COVID status
[2019-05-30 16:19] LABS: Lactic Acid 1.2 mmol/L (0.4-2.0)
--- NOTE | 2019-05-30 16:20 | PC.NURSE ---
Patient accepted to [facility] by Dr Campbell, awaiting bed assignment.
--- NOTE | 2019-05-30 16:21 | ED.SOB ---
HPI - SOB/Dyspnea General Chief Complaint: Shortness of Breath/Dyspnea Stated Complaint: ambulance Source: patient Mode of arrival: ambulatory Limitations: no limitations History of Present Illness HPI Narrative: 59-year-old woman brought by EMS for altered mental status and shortness of breath. She states that her pulse ox was in the 70s last night but she thought that it might get better so she waited till this morning. Her last breathing treatment was last night. Her family found her today difficult to arouse, confused and with a sat of 76% on her usual dose of oxygen ( 3 liters/minute by nasal cannula). She is currently undergoing chemotherapy at [facility] for lung cancer and was admitted there on April 14. She was admitted here on May 11 for a brief stay due to COPD exacerbation with no obvious infection. She has had no travel or known sick exposures and denies any recent fever. On arrival she was complaining of chest pain however after she received a small amount of Ativan, she states that she was having no chest pain at all. MD elicited complaint: shortness of breath Pertinent past history: COPD Onset (ago): day(s) (1) Context: medication noncompliance Timing: constant Severity: severe Exacerbating factors: nothing Relieving factors: oxygen Known history of: COPD and other ( Lung cancer status post left upper lobectomy) Associated symptoms: cough and wheezing Treatment prior to arrival: oxygen Related Data Home oxygen amount: 3 liters Home Medications Medication Instructions Recorded Confirmed Trelegy Ellipta 1 inh INHALATION BID 12/17/18 05/30/19 alprazolam 0.5 mg PO BID PRN 12/17/18 05/30/19 blood sugar diagnostic [OneTouch 12/17/18 05/12/19 Ultra Blue Test Strip] lancets [OneTouch Delica Lancets] 12/17/18 05/12/19 levothyroxine [Synthroid] 175 mcg PO DAILY 12/17/18 05/30/19 famotidine 10 mg PO DAILY 05/30/19 05/30/19 glimepiride 4 mg PO BID 05/30/19 05/30/19 hydromorphone 8 mg PO Q4H PRN 05/30/19 05/30/19 ipratropium-albuterol [Combivent 1 puff INHALATION QID 05/30/19 05/30/19 Respimat] lisinopril 10 mg PO DAILY 05/30/19 05/30/19 nortriptyline 50 mg PO HS 05/30/19 05/30/19 Allergies Allergy/AdvReac Type Severity Reaction Status Date / Time NSAIDS (Non-Steroidal Allergy Unknown Verified 12/12/18 17:19 Anti-Inflamma Sulfa (Sulfonamide Allergy Unknown Verified 12/12/18 17:19 Antibiotics) Review of Systems Constitutional: Constitutional: Denies chills, Reports fatigue, Denies fever(s) and Denies weakness ENT: Denies dysphagia, Denies nasal congestion and Denies sore throat Cardiovascular: Cardiovascular: Denies chest pain, Reports rapid heart rate and Denies radiating jaw, neck or arm pain Respiratory: Respiratory: Reports as per HPI, Reports cough, Reports dyspnea and Reports wheezing Gastrointestinal: Gastrointestinal: Denies abdominal pain, Denies diarrhea, Denies nausea and Denies vomiting Genitourinary: Genitourinary: Denies nocturia and Denies dysuria Integumentary/Breasts: Skin/Breast: Denies pruritus, Denies erythema and Denies rash Neurologic: Denies vertigo, Denies dizziness and Denies syncope Psychiatric: Psychiatric: Denies anxiety and Denies depression Endocrine: Endocrine: Denies polydipsia and Denies polyuria Hematologic/Lymphatic: Hematologic/Lymphatic: Denies easy bleeding and Denies easy bruising Allergic/Immunologic: Allergic/Immunologic: Denies lip swelling and Denies throat swelling PMFSH Past Medical History Medical History COPD (chronic obstructive pulmonary disease) Hypothyroidism Metastatic lung cancer (metastasis from lung to other site) Pancreatitis, chronic Type 2 diabetes mellitus Surgical History Surgical History Hx of gastric bypass Status post lobectomy of lung Social History Social History (Reviewed 05/30/19 @ 16:2
--- NOTE | 2019-05-30 16:55 | PC.NURSE ---
Patient is lethargic, will withdrawal to painful stimuli and moan. BP 91/55, ERP informed NNOs. Sat 94% on BiPap. Patient accepted to [facility] ICU Rm [id number]
--- NOTE | 2019-05-30 17:03 | PC.NURSE ---
Updated patient daughter Roxie Leyva ([phone]), daughter was unaware if patient had official DNR but patient wanted DNI
[2019-05-30] MEDS: NALOXONE HCL 0.4 MG/ML VIAL 0.2 MG IV PUSH (17:51)
[2019-05-31 13:42] LABS: SARS-CoV-2 RNA PCR Negative
== END 2019-05-30 18:02 | disposition short-term general hospital (02) ==
PROVIDERS: Emergency Provider Emergency Medicine
DX: J44.1 Chronic obstructive pulmonary disease with (acute) exacerbation (principal); J18.9 Pneumonia, unspecified organism; J44.0 Chronic obstructive pulmonary disease with (acute) lower respiratory infection; Z20.828 Contact with and (suspected) exposure to other viral communicable diseases; C34.90 Malignant neoplasm of unspecified part of unspecified bronchus or lung; E11.9 Type 2 diabetes mellitus without complications; E87.1 Hypo-osmolality and hyponatremia; F17.200 Nicotine dependence, unspecified, uncomplicated
CPT/HCPCS: 36415; 36600; 71045; 80053; 81001; 82805; 83605; 84484; 85025; 85380; 85610; 85730; 87040; 87635; 87804; 93005; 94640; 96361; 96365; 96366; 96367; 96375; 96376; 99285; A9270; C9803; J0456; J0696; J2060; J2310; J2920; J7030; U0003

== ENCOUNTER 2019-06-09 15:28 | Emergency (ER) | payer BC, SELFPAY ==
[2019-06-09] VITALS (9 sets, daily range): BP systolic 99–114; BP diastolic 54–59; PULSE 100–127; RESP 16–28; TEMP 37.9–38.1; O2SAT 95–100
--- NOTE | ~2019-06-09 | XR_ITS ---
EXAMINATION: XR chest 1V portable DATE: 06/09/2019 16:21 INDICATION: Shortness of breath and cough. TECHNIQUE: A single frontal view of the chest was obtained. COMPARISON: Chest single view 05/30/2019, CT abdomen and pelvis 12/17/2018, chest CT 11/25/2018 FINDINGS: There is volume loss of left hemithorax from partial left upper lobe resection. There are p atchy airspace opacities in all right lung zones. No pleural effusion or pneumothorax. The heart size is normal. There is a right internal jugular port with tip at superior cavoatrial junction. There ar e old healed bilateral rib fractures. IMPRESSION: 1. Worsened right lung disease, consistent with pneumonia. Reviewed, dictated and finalized at location A.
--- NOTE | 2019-06-09 15:38 | ECG_ITS ---
Measurements Intervals [place] Rate: 123 P: 82 NC: 147 QRS: 95 QRSD: 98 T: 64 QT: 322 QTc: 461 Interpretive Statements SINUS TACHYCARDIA RIGHT AXIS DEVIATION BASELINE ARTIFACT- I, V4, V6 ABNORMAL ECG Electronically Signed On 06-09-2019 18:38:53 CDT by Tito Henderson D.O.
--- NOTE | 2019-06-09 15:48 | ED.SOB ---
HPI - SOB/Dyspnea General Chief Complaint: Shortness of Breath/Dyspnea Stated Complaint: ambulance Source: patient Mode of arrival: ambulatory Limitations: altered mental status History of Present Illness HPI Narrative: 59 y.o. with oxygen dependent COPD, s/p left upper lobe resection, with metastatic lung CA became SOB and weak this AM. Transferred to [place] ICU 05/29 with RUL pneumonia. Discharged 06/05. Family states she was doing well at baseline on day of discharge. States she has had lower abdominal cramping and diarrhea for the last week. Pt is full code. Under suspicion for Covid-19. Pt. denies increase in cough. has a fever today. Morphine pain pump changed before d.c. Related Data Home Medications Medication Instructions Recorded Confirmed Trelegy Ellipta 1 inh INHALATION BID 12/17/18 06/09/19 alprazolam 0.5 mg PO BID PRN 12/17/18 06/09/19 blood sugar diagnostic [OneTouch 12/17/18 06/09/19 Ultra Blue Test Strip] lancets [[facility] Delica Lancets] 12/17/18 06/09/19 levothyroxine [Synthroid] 175 mcg PO DAILY 12/17/18 06/09/19 famotidine 10 mg PO DAILY 05/30/19 06/09/19 glimepiride 4 mg PO BID 05/30/19 06/09/19 hydromorphone 8 mg PO Q4H PRN 05/30/19 06/09/19 ipratropium-albuterol [Combivent 1 puff INHALATION QID 05/30/19 06/09/19 Respimat] lisinopril 10 mg PO DAILY 05/30/19 06/09/19 nortriptyline 50 mg PO HS 05/30/19 06/09/19 Allergies Allergy/AdvReac Type Severity Reaction Status Date / Time NSAIDS (Non-Steroidal Allergy Unknown Verified 12/12/18 17:19 Anti-Inflamma Sulfa (Sulfonamide Allergy Unknown Verified 12/12/18 17:19 Antibiotics) Review of Systems Review of Systems: ROS unobtainable: Yes unobtainable due to medical condition Cardiovascular: Cardiovascular: Denies chest pain Respiratory: Comments: denies productive cough PMFSH Social History Social History Social History: smoker, now on occasion Years smoked: 35 Smoking status: Current every day smoker Tobacco type: cigarettes Second hand tobacco smoke exposure: Yes Alcohol intake: never Substance use type: does not use Gender identity (if verbalized by the patient): Female Spiritual care concerns: No Agree to blood products: Yes Exam Const: General: ill appearing; No diaphoretic Nutritional Appearance: thin Other: Speaks 2 - 3 word phrases. Confused. Thinks she is at [place]. Talking about going to a baseball game; needs to poultry picker her father. HENMT: Head: normal to inspection General nose exam: no nasal discharge noted Mouth: No lip normal (dry) Neck: Neck: no lymphadenopathy Chest: Chest palpation & inspection: normal inspection of the chest Resp: Effort & Inspection: abnormal respiratory pattern, no audible wheezes, no cough, no paradoxical thoraco-abdom movements, no pursed lip breathing, respiratory distress, retractions, no stridor, tachypneic, no tracheal deviation, no tripod positioning, uses accessory muscles, prolonged expiratory phase and symmetric chest movement Cardio: Rate: regular rate Rhythm: regular rhythm Heart sounds: no murmurs GI: Inspection: no abdominal wall ecchymosis, no edema, non-distended and other (RLQ implanted pain pump. ) GI Palp: No abdominal tenderness and Yes No hepatosplenomegaly present Skin: General skin exam: normal color and elasticity normal Lesions: no lesions Rashes: no rashes Extrem: General: normal to inspection and no edema Psych: Appearance: disheveled Speech and movement: Slurred speech present Course Course Emergency Course: Abrupt onset this AM of dyspnea. Resp. acidosis, leukocytosis, Uncompensated respiratory acidosis. Patchy infiltrates right lung c/w worsening pneumonia. Responding to BiPap RR = 12. Sleeping at 17:20 Tx. with duoneb. Daughter phoned. Pt. is full code but family wants to avoid intubation if at all possible. Pt transferred to [facility] ICU with C
[2019-06-09] MEDS: ACETAMINOPHEN 325 MG TABLET 650 MG PO (16:04)
[2019-06-09] MEDS: IPRATROPIUM 0.5 MG/ALBUTEROL SULFATE 2.5 MG AMPUL.NEB 3 ML INHALATION (16:08)
[2019-06-09 16:20] LABS: Base Excess ABG 7.9 mmol/L (0-2); Carboxyhemoglobin 6.4 % (0-1.5); Methemoglobin ABG 0.3 % (0-1.5); Oxygen Content ABG 14.5 %vol (16.0-22.0); Oxygen Saturation ABG 98.5 % (95-97); Oxyhemoglobin 91.9 % (94-100); Reduced Hemoglobin 1.4 % (0-1.5); pH ABG 7.28 (7.35-7.45)
[2019-06-09 16:22] LABS: Hematocrit 36.2 % (35.0-49.0); Hemoglobin 11.8 g/dL (12.0-15.0); Mean Corpuscular HGB Conc 32.6 g/dL (32.0-36.0); Mean Corpuscular Volume 101.1 fL (78.0-102.0); Mean Platelet Volume 10.6 fl (9.2-11.8); Platelet Count Result 213 K/mm3 (150-420); Red Blood Count 3.58 M/mm3 (4.20-5.40)
[2019-06-09 16:22] LABS: PCO2 ABG 80.7 mmHg (35-45)
[2019-06-09 16:23] LABS: Device NON-REBREATHER MASK; Modified Allen's Test Unable to perform; Site Drawn RIGHT RADIAL
[2019-06-09 16:38] LABS: Add Urine Microscopic? YES; Appearance Urine Sl Cloudy (Clear); Bilirubin Urine Negative (Negative); Blood Urine 2+ (Negative); Color Urine Yellow (Yellow); Glucose Urine UA 3+ (Negative); Ketones Urine Negative (Negative); Leukocyte Esterase Ur Negative (Negative); Nitrate Urine Negative (Negative); Protein Urine Negative (Negative); Specific Grav Ur 1.025 (1.010-1.020); Urobilinogen Urine 0.2 mg/dL (0.2-1.0); pH Urine 5.5 (5.0-8.0)
--- NOTE | 2019-06-09 16:40 | PC.NURSE ---
Pt. and family request transfer back to [facility] for admission because all her Drs. are located there. RT here to place pt. on Bipap and settings confirmed. Call placed to [facility].
[2019-06-09 16:46] LABS: D Dimer 0.65 mg/L (0.19-0.50)
--- NOTE | 2019-06-09 16:51 | PC.NURSE ---
Pt.tolerating Bipap well at this time. Pt. sleeping c RR 20-24 and pt. sleeping. VSS.
[2019-06-09 16:52] LABS: Ferritin 138 ng/mL (8-252); White Blood Count 20.5 K/mm3 (4.8-10.8)
[2019-06-09 16:53] LABS: Band Neutrophils Percent 5 % (0-6); Basophils Percent Manual 0 % (0-1); Eosinophils Percent Manual 0 % (1-6); Lymphocytes Absolute Manual 0.82 K/mm3 (1.1-4.5); Lymphocytes Percent Manual 4 % (18-44); Monocytes Absolute Manual 0.82 K/mm3 (0.1-0.90); Monocytes Percent Manual 4 % (3-9); Neutrophils Absolute Manual 18.86 K/mm3 (1.7-7.2); Neutrophils Percent Manual 87 % (46-73); Platelet Estimate Adequate (Adequate); Total Cells Counted 100
[2019-06-09 16:54] LABS: Alanine Aminotransferase 20 U/L (14-59); Albumin Level 2.8 g/dL (3.4-5.0); Alkaline Phosphatase 70 U/L (46-116); Anion Gap 6.3 mmol/L (7-16); Aspartate Amino Transferase 12 U/L (15-37); Bilirubin,Total 0.3 mg/dL (0.00-1.00); Blood Urea Nitrogen 19 mg/dL (7-18); Calcium 10.1 mg/dL (8.5-10.1); Carbon Dioxide 39 mmol/L (21-32); Chloride 94 mmol/L (98-108); Creatine Kinase 38 U/L (26-192); Estimated CRCL calculation 40 ml/min; Estimated Glomerular Filt Rate 56; Glucose 210 mg/dL (70-99); Influenza Control Valid (Valid); Osmolality Calculated 286 mOsm/kg (285-295); Potassium 5.3 mmol/L (3.5-5.1); Sodium 134 mmol/L (136-145); Total Protein 6.3 g/dL (6.4-8.2)
[2019-06-09 17:00] LABS: BNP 27.7 pg/mL (0-100); Troponin I < 0.02 ng/mL (0.00-0.056)
[2019-06-09 17:01] LABS: Lactic Acid 1.1 mmol/L (0.4-2.0)
[2019-06-09 17:04] LABS: Bacteria Urine 2+ /hpf; Mucus Urine Few /lpf; Squamous Epithelial Cell Urine Moderate /hpf (Few); WBC Urine None seen /hpf (0-3)
[2019-06-09 17:43] LABS: Base Excess ABG 7.6 mmol/L (0-2); HCO3 ABG 34.8 mmol/L (23-29); Oxygen Content ABG 13.2 %vol (16.0-22.0); Oxygen Saturation ABG 92.8 % (95-97); Oxyhemoglobin 88.1 % (94-100); PCO2 ABG 63.8 mmHg (35-45); PO2 ABG 65.1 mmHg (80-90); Total Hemoglobin 10.6 g/dL; pH ABG 7.35 (7.35-7.45)
[2019-06-09 17:44] LABS: Modified Allen's Test Unable to perform; Site Drawn RIGHT RADIAL
[2019-06-09 17:45] LABS: Device BIPAP
[2019-06-09 17:49] LABS: Expiratory Pressure 6 cmH2O; Inspiratory Pressure 12 cmH2O
[2019-06-09] MEDS: LACTATED RINGERS 1,000 ML 500 ML IV CONT (17:59)
--- NOTE | 2019-06-09 19:14 | PC.NURSE ---
1850 Call placed to [facility] for pt. transfer.
[2019-06-11 13:28] LABS: SARS-CoV-2 RNA PCR Negative
== END 2019-06-09 19:08 | disposition short-term general hospital (02) ==
PROVIDERS: Emergency Provider Family Medicine
DX: J96.00 Acute respiratory failure, unspecified whether with hypoxia or hypercapnia (principal); J18.9 Pneumonia, unspecified organism; F17.200 Nicotine dependence, unspecified, uncomplicated; C34.90 Malignant neoplasm of unspecified part of unspecified bronchus or lung; Z20.828 Contact with and (suspected) exposure to other viral communicable diseases
CPT/HCPCS: 36415; 36600; 71045; 80053; 81001; 82375; 82550; 82728; 82805; 83050; 83605; 83880; 84484; 85025; 85380; 86140; 87040; 87635; 87804; 93005; 94640; 96365; 96367; 96368; 99291; A9270; J0692; J1956; J3370; J7060; J7120; U0003

== ENCOUNTER 2019-06-28 02:29 | Emergency (ER) | payer BC, SELFPAY ==
--- NOTE | ~2019-06-28 | XR_ITS ---
EXAMINATION: XR chest 1V portable DATE: 06/28/2019 05:20 INDICATION: Unresponsive TECHNIQUE: frontal view of the chest was obtained. COMPARISON: Chest radiograph dated 06/09/[address] dated 11/25/2018 FINDINGS: Right internal jugular central venous port catheter with distal tip near the superior cavoatrial junc tion. Postoperative change of prior partial left upper lobectomy with volume loss in the left hemithorax an d scarring centered at the left hilum where there is a suture line likely for treatment of reported p rior lung cancer. This does not appear appreciably changed accounting for rightward rotation of the p atient. No other airspace opacities, edema, pleural effusion or pneumothorax. Heart size is normal. E xpansile sclerotic lesions at the posterior right ninth and anterior left third ribs, at the left cla vicle and along the left scapular spine at the site of prior lytic lesions likely related to treated metastatic disease. Severe cervical spondylosis. IMPRESSION: 1. Relatively stable appearance of change of prior partial left upper lobectomy for reported lung can cer. No acute cardiopulmonary disease. 2. Increased sclerosis at several previously lytic bone lesions consistent with treated metastatic di sease. Reviewed, dictated and finalized at location A. IMPRESSION: 1. Relatively stable appearance of change of prior partial left upper lobectomy for reported lung cancer. No acute cardiopulmonary disease. 2. Increased sclerosis at several previously lytic bone lesions consistent with treated metastatic disease.
[2019-06-28 02:29] VITALS: BP 112/70; PULSE 101; RESP 16; TEMP 36.9; O2SAT 98
[2019-06-28] MEDS: SODIUM CHLORIDE 0.9% IV 1,000 ML 999 ML IV CONT ×2 (02:30→03:25)
--- NOTE | 2019-06-28 02:38 | ECG_ITS ---
Measurements Intervals [place] Rate: 98 P: 85 KS: 148 QRS: 95 QRSD: 106 T: 69 QT: 371 QTc: 475 Interpretive Statements SINUS RHYTHM POSSIBLE LEFT ATRIAL ENLARGEMENT RIGHT AXIS DEVIATION INCOMPLETE RIGHT BUNDLE BRANCH BLOCK BASELINE ARTIFACT- V4, V6 BORDERLINE ECG Electronically Signed On 06-28-2019 7:40:42 CDT by Tito Henderson D.O.
--- NOTE | 2019-06-28 02:44 | ED.AMS ---
HPI - Altered Mental Status General Chief Complaint: Altered Mental Status Stated Complaint: Altered Mental Status Time Seen by Provider: 06/28/19 02:33 History of Present Illness HPI narrative: Bhavani is a 59F with a PMH of lung cancer with mets, hypothyroidism, DMII and COPD that presented to the ED by EMS with altered mental status. She has had multiple admission to this hospital and [facility] for her cancer, pneujmonia, and COPD over the last several months. She had been getting progressively altered throughout the day and it got very bad so family called EMS. She is still full code and wants everything done per EMS. No further history could be obtained. Related Data Home Medications Medication Instructions Recorded Confirmed Trelegy Ellipta 1 inh INHALATION BID 12/17/18 06/28/19 alprazolam 0.5 mg PO BID PRN 12/17/18 06/28/19 blood sugar diagnostic [OneTouch 12/17/18 06/28/19 Ultra Blue Test Strip] lancets [[facility] Delica Lancets] 12/17/18 06/28/19 levothyroxine [Synthroid] 175 mcg PO DAILY 12/17/18 06/28/19 famotidine 10 mg PO DAILY 05/30/19 06/28/19 glimepiride 4 mg PO BID 05/30/19 06/28/19 hydromorphone 8 mg PO Q4H PRN 05/30/19 06/28/19 ipratropium-albuterol [Combivent 1 puff INHALATION QID 05/30/19 06/28/19 Respimat] lisinopril 10 mg PO DAILY 05/30/19 06/28/19 nortriptyline 50 mg PO HS 05/30/19 06/28/19 Allergies Allergy/AdvReac Type Severity Reaction Status Date / Time NSAIDS (Non-Steroidal Allergy Unknown Verified 12/12/18 17:19 Anti-Inflamma Sulfa (Sulfonamide Allergy Unknown Verified 12/12/18 17:19 Antibiotics) Review of Systems Review of Systems: ROS unobtainable: Yes unobtainable due to mental status [facility] Past Medical History Medical History COPD (chronic obstructive pulmonary disease) Hypothyroidism Metastatic lung cancer (metastasis from lung to other site) Pancreatitis, chronic Type 2 diabetes mellitus Surgical History Surgical History Hx of gastric bypass Status post lobectomy of lung Family History Family History Other Diabetes mellitus Family history of arthritis Family history of lung cancer Hypertension Social History Social History Social History: smoker, now on occasion Years smoked: 35 Smoking status: Current every day smoker Tobacco type: cigarettes Second hand tobacco smoke exposure: Yes Alcohol intake: never Substance use type: does not use Gender identity (if verbalized by the patient): Female Spiritual care concerns: No Agree to blood products: Yes Exam Const: Other: Lying in bed moaning. No acute respiratory distress. Cachectic appearing HENMT: Other: Normocephalic, atraumatic Eyes: Pupils: Equal, round and reactive pupils present Resp: Effort & Inspection: normal respiratory effort Auscultation: clear to auscultation bilaterally Cardio: Rate: regular rate Rhythm: regular rhythm GI: Other: Soft, bowel sounds present, groans when abdomen is pushed. Round abdominal mass under scar consistent with pain pump Neuro: Other: Lying in bed moanin. No eye opening to pain Groans on her own Squeezed hand upon command GCS of 9 Extrem: General: normal to inspection Psych: Other: Somnolent Course Course Emergency Course: Kina was seen and evaluated. Ordered CXR, EKG and labs as below as well as 1 L of NS. Bedside glucose was greater than 500. EKG showed NSR at 98 bpm, borderline RAD, No ST elevation/depression Later while placing iyer she started speaking in complete sentences saying she wanted that pain to stop. PCO2 was critical at 104. Contacted RT for BiPAP. She has responded well to BiPAP before when she was hypercapneic and altered. Repeat ABG ordered in 30 mintues as well as COVID 19. She
[2019-06-28 03:08] LABS: Basophils Absolute Auto 0.01 K/mm3 (0.00-0.10); Basophils Percent Auto 0.1 % (0.0-1.0); Hematocrit 42.3 % (35.0-49.0); Hemoglobin 12.6 g/dL (12.0-15.0); Immature Granulocyte Absolute 0.04 K/mm3 (0.00-0.00); Immature Granulocyte Percent A 0.4 % (0.0-0.0); Lymphocytes Percent Auto 2.1 % (18.0-42.0); Mean Corpuscular HGB Conc 29.8 g/dL (32.0-36.0); Mean Corpuscular Hemoglobin 32.6 pg (27.0-31.0); Mean Corpuscular Volume 109.6 fL (78.0-102.0); Mean Platelet Volume 10.5 fl (9.2-11.8); Monocytes Absolute Auto 0.96 K/mm3 (0.10-0.90); Monocytes Percent Auto 10.2 % (2.0-11.0); Neutrophils Absolute Auto 8.2 K/mm3 (1.7-7.2); Neutrophils Percent Auto 87.2 % (50.0-70.0); Platelet Count Result 260 K/mm3 (150-420); Red Blood Count 3.86 M/mm3 (4.20-5.40); Red Cell Distribution Width 16.7 % (11.6-14.4); White Blood Count 9.4 K/mm3 (4.8-10.8)
[2019-06-28 03:14] LABS: HCO3 ABG 41.6 mmol/L (23-29); Oxygen Content ABG 15.6 %vol (16.0-22.0); Oxygen Saturation ABG 97.8 % (95-97); Oxyhemoglobin 87.1 % (94-100); PO2 ABG 113.2 mmHg (80-90); Total Hemoglobin 12.6 g/dL; pH ABG 7.22 (7.35-7.45)
[2019-06-28 03:16] LABS: Modified Allen's Test Pass; PCO2 ABG 104.7 mmHg (35-45); Site Drawn LEFT RADIAL
[2019-06-28 03:22] LABS: Appearance Urine Clear (Clear); Bilirubin Urine Negative (Negative); Color Urine Yellow (Yellow); Glucose Urine UA 3+ (Negative); Ketones Urine Negative (Negative); Leukocyte Esterase Ur Negative LEU/UL (Negative); Nitrate Urine Negative (Negative); Protein Urine Negative (Negative); Specific Grav Ur <= 1.005 (1.010-1.020); Urobilinogen Urine 0.2 mg/dL (0.2-1.0)
[2019-06-28 03:24] LABS: Prothrombin Time 10.6 Seconds (9.64-11.0)
--- NOTE | 2019-06-28 03:25 | PC.NURSE ---
respiratory therapy called for BIPAP THERAPY. spoke with
[2019-06-28 03:28] LABS: Lactic Acid Reflex 4.2 mmol/L (0.4-2.0)
--- NOTE | 2019-06-28 03:28 | PC.NURSE ---
0300 during iyer insertion, pt states take that out, im awake pt kicking feet. back to sleeping state after insertion completed.
[2019-06-28 03:34] LABS: Device NASAL CANNULA
[2019-06-28 03:35] LABS: Alanine Aminotransferase 22 U/L (14-59); Albumin Level 3.4 g/dL (3.4-5.0); Alkaline Phosphatase 100 U/L (46-116); Anion Gap 6.2 mmol/L (7-16); Bilirubin,Total 0.2 mg/dL (0.00-1.00); Blood Urea Nitrogen 34 mg/dL (7-18); Calcium 10.9 mg/dL (8.5-10.1); Carbon Dioxide 42 mmol/L (21-32); Chloride 97 mmol/L (98-108); Creatine Kinase 29 U/L (26-192); Estimated CRCL calculation 20 ml/min; Estimated Glomerular Filt Rate 29; Potassium 5.2 mmol/L (3.5-5.1); Salicylate 4.5 mg/dL (2.8-20.0); Sodium 140 mmol/L (136-145); Thyroid Stimulating Hormone 0.79 uIU/mL (0.36-3.74); Total Protein 7.1 g/dL (6.4-8.2)
[2019-06-28 03:35] LABS: Amphetamine Screen Urine Negative (Negative); Barbiturate Screen Urine Negative (Negative); Benzodiazepines Screen Urine Negative (Negative); Cannabinoid Screen Urine Negative (Negative); Cocaine Screen Urine Negative (Negative); Methadone Screen Urine Negative (Negative); Opiate Screen Urine Positive (Negative); Phencyclidine Screen Urine Negative (Negative)
--- NOTE | 2019-06-28 03:37 | PC.NURSE ---
Brittaney here, with BIPAP SET UP.
[2019-06-28 03:39] LABS: Add Urine Microscopic? YES; Blood Urine Trace-Intact (Negative); RBC Urine 0-2 /hpf (0-2); Squamous Epithelial Cell Urine Rare /hpf (Few); WBC Urine 0-3 /hpf (0-3)
[2019-06-28 03:40] LABS: Bacteria Urine None seen /hpf
[2019-06-28 03:44] LABS: Ammonia 13 umol/L (11-32); Aspartate Amino Transferase 4 U/L (15-37)
[2019-06-28 03:46] VITALS: PULSE 106; RESP 14; O2SAT 97
[2019-06-28 03:46] LABS: Acetaminophen 0 ug/mL (10-30); Ethanol < 3 mg/dL (0-6); Glucose > 500 mg/dL (70-99); Osmolality Calculated 320 mOsm/kg (285-295); Troponin I 0.07 ng/mL (0.00-0.056)
[2019-06-28 04:00] LABS: Glucose Point of Care > 450 (65-105)
[2019-06-28 04:00] LABS: Glucose Point of Care > 450 (65-105)
--- NOTE | 2019-06-28 04:03 | PC.NURSE ---
pt on BIPAP, tolerating well. pt moved to negative pressure room. Covid specimen obtained
[2019-06-28] MEDS: INSULIN HUMAN REGULAR (*BKC) 100 UNITS/ML IV PUSH ×2 (04:07→05:21)
[2019-06-28 04:23] LABS: HCO3 ABG 36.6 mmol/L (23-29); Oxygen Content ABG 14.5 %vol (16.0-22.0); Oxygen Saturation ABG 90.4 % (95-97); Oxyhemoglobin 81.5 % (94-100); PO2 ABG 64.2 mmHg (80-90); Total Hemoglobin 12.6 g/dL; pH ABG 7.23 (7.35-7.45)
[2019-06-28] MEDS: INSULIN HUMAN REGULAR (*BKC) 100 UNITS in SODIUM CHLORIDE 0.9% IV 99 ML IV CONT (04:23)
[2019-06-28 04:25] LABS: Device BIPAP; Modified Allen's Test Pass; PCO2 ABG 90.2 mmHg (35-45); Site Drawn LEFT RADIAL
[2019-06-28 04:30] VITALS: RESP 18
--- NOTE | 2019-06-28 04:50 | PC.NURSE ---
erp spoke with Dr. Ernestina galeano
[2019-06-28 05:04] VITALS: BP 107/65; PULSE 94; RESP 20; O2SAT 96
[2019-06-28 05:06] VITALS: BP 107/65; PULSE 94; RESP 20; TEMP 36.6; O2SAT 94
[2019-06-28 05:18] LABS: Glucose Point of Care > 450 (65-105)
--- NOTE | 2019-06-28 05:24 | PC.NURSE ---
[facility] called for transfer. spoke with daughter dejon, verbal consent for transfer to [place].
--- NOTE | 2019-06-28 05:35 | PC.NURSE ---
report to [facility] with ingris villafana to go on transfer with patient. unchanged condition of patient.
[2019-06-28 06:05] LABS: Reflex Lactic Acid Yes or No Add Lactic
[2019-06-29 13:36] LABS: SARS-CoV-2 RNA PCR Negative
== END 2019-06-28 05:48 | disposition short-term general hospital (02) ==
PROVIDERS: Emergency Provider Family Medicine; PCP Internal Medicine
DX: J96.02 Acute respiratory failure with hypercapnia (principal); C34.90 Malignant neoplasm of unspecified part of unspecified bronchus or lung; E11.9 Type 2 diabetes mellitus without complications; Z20.828 Contact with and (suspected) exposure to other viral communicable diseases
CPT/HCPCS: 36415; 36600; 71045; 80053; 80307; 81001; 82140; 82550; 82805; 82948; 83605; 84443; 84484; 85025; 85610; 87040; 87635; 93005; 96361; 96365; 96368; 99283; 99285; C9803; J0456; J1815; J7030; U0003